=== PATIENT | female | born 1945 | race Caucasian/White ===

== ENCOUNTER 2021-10-21 09:44 | Day surgery (SDC) | payer MEDICARE, SELFPAY ==
[2021-10-16 09:25] VITALS: BMI 23.8
--- NOTE | 2021-10-20 10:49 | P.CONAN_ITS ---
Documented by User: Toshia Smith NP 10/20/21 10:50 HPI - Anesthesia Eval Consult details Narrative: 76yo F for Colonoscopy [facility] Past Medical History Medical History Elevated cholesterol HTN (hypertension) Surgical History Surgical History H/O colonoscopy Social History Social History Patient Tobacco Use Status: Never used Tobacco Use of substances other than those prescribed or required for medical reasons: No Are you DNR?: No Advance Directives: No Advance Directives Information Provided: Yes Patient : No Meds Allergies Allergy/AdvReac Type Severity Reaction Status Date / Time No Known Allergies Allergy Verified 10/16/21 09:26 Home Medications Medication Instructions Recorded Confirmed Last Taken Type atenolol 50 mg tablet 50 mg PO DAILY 10/16/21 10/16/21 Unknown History multivitamin 1 tab PO DAILY 10/16/21 10/16/21 Unknown History simvastatin 10 mg tablet 10 mg PO BEDTIME 10/16/21 10/21/21 10/21/21 06:45 History triamterene 37.5 1 tab PO DAILY 10/16/21 10/16/21 Unknown History mg-hydrochlorothiazide 25 mg tablet Exam Exam Date and Time: October 20, 2021 1049 Height,Weight and Vital Signs: Height 5 ft 2 in Weight 58.967 kg Assessment and Plan Assessment Anesthesia Assessment: Chart Reviewed Documented by User: Ana Luisa Patel MD 10/21/21 11:10 [facility] Past Medical History Medical History Elevated cholesterol HTN (hypertension) Patient : No Family History Family history of problems with anesthesia: No Surgical History Surgical History H/O colonoscopy History of Problems with Anesthesia: No Social History Social History Patient Tobacco Use Status: Never used Tobacco Use of substances other than those prescribed or required for medical reasons: No Are you DNR?: No Advance Directives: No Advance Directives Information Provided: Yes Patient : No Meds Allergies Allergy/AdvReac Type Severity Reaction Status Date / Time No Known Allergies Allergy Verified 10/16/21 09:26 Home Medications Medication Instructions Recorded Confirmed Last Taken Type atenolol 50 mg tablet 50 mg PO DAILY 10/16/21 10/16/21 Unknown History multivitamin 1 tab PO DAILY 10/16/21 10/16/21 Unknown History simvastatin 10 mg tablet 10 mg PO BEDTIME 10/16/21 10/21/21 10/21/21 06:45 History triamterene 37.5 1 tab PO DAILY 10/16/21 10/16/21 Unknown History mg-hydrochlorothiazide 25 mg tablet Exam Airway Mallampati Class: II TM Dist: >3cm Neck ROM: Full Heart: RRR Lungs: CTA Assessment and Plan Final Anesthetic Review Family History of Problems with Anesthesia: No History of Problems with Anesthesia: No ASA Class: II Final Preanesthetic Review: No Changes in Pt Med Stat, Meds/Allgs Chart Reviewed, Consent Obtained/Reviewed and Anes Risks/Benef Reviewed Patient Risk: Low Procedure Risk: Low Anesthetic Plan Anesthetic Plan: MAC: Disposition: Standard PACU
[2021-10-21 10:33] VITALS: BMI 23.8
[2021-10-21 10:38] VITALS: BP 143/85; PULSE 62; RESP 18; TEMP 36.9; O2SAT 98
[2021-10-21] MEDS: Lactated Ringers 1,000 ML 100 ML IVCONT (10:41)
--- NOTE | 2021-10-21 10:53 | MHC.SHP ---
Pre-Procedural Eval Section A Date of Service: 10/21/21 The patient is an INPATIENT: No Changes since office visit: No Cold of Flu in the past 2 weeks, No New Medical Problems, No Changes in Medication and No Patient answered all questions The History & Physical has been completed within 30 days and I have reviewed it.: No Section B Chief Complaint: screening Allergies: Allergies Allergy/AdvReac Type Severity Reaction Status Date / Time No Known Allergies Allergy Verified 10/16/21 09:26 Plan I have reviewed the history and physical and performed a pertinent physical examination on my patient. No changes have occurred unless specified.
--- NOTE | 2021-10-21 11:18 | PM.OP ---
Brief Operative Note Date of Service: 10/21/21 Pre-op diagnosis: screening Post-op diagnosis: same Procedure: colonoscopy Surgeon: Ton Beaulieu Anesthesia: MAC Was an Saw Edge Fuser Circular used for this Procedure?: No Estimated blood loss (mL): 0 Pathology: none sent Condition: stable Disposition: PACU
[2021-10-21 11:22] VITALS: BP 86/52; PULSE 69; RESP 16; TEMP 36.1; O2SAT 94
[2021-10-21 11:37] VITALS: BP 116/63; PULSE 61; RESP 16; O2SAT 96
--- NOTE | 2021-10-21 11:49 | HO.POSTANES ---
Post Anesthesia Evaluation Post Anesthesia Evaluation Vital Signs: Vital Signs Temp Pulse Resp BP Pulse Ox O2 Del Method 10/21/21 11:37 61 16 116/63 96 Room Air 10/21/21 11:22 97.0 F 69 16 86/52 L 94 Room Air 10/21/21 10:38 98.5 F 62 18 143/85 H 98 Room Air Anesthesia: Monitored Mental Status: Awake Pain Control: Satisfactory Nausea/Vomiting: None Hydration: Adequate Anesthesia-Related Issues: No Anes. Related Issues
[2021-10-21 11:52] VITALS: BP 118/63; PULSE 60; RESP 16; TEMP 36.1; O2SAT 96
--- NOTE | 2021-10-21 12:46 | OP_ITS ---
SURGEON: Ton Beaulieu MD INDICATIONS: Colon cancer screening and prior history of adenomatous colon polyps. PREOPERATIVE DIAGNOSIS: POSTOPERATIVE DIAGNOSIS: PROCEDURE PERFORMED: Colonoscopy to the terminal ileum. ESTIMATED BLOOD LOSS: COMPLICATIONS: ANESTHESIA: ASSISTANTS: SPECIMENS: MEDICATIONS: Monitored anesthesia care. DESCRIPTION OF PROCEDURE: History and physical were performed. The risks and benefits of the procedure were explained to the patient. Informed consent was obtained. The patient was placed in the left lateral decubitus position. A digital rectal exam was performed and was found to be normal. The Olympus pediatric video colonoscope was introduced into the rectum and advanced to the cecum without difficulty. The cecum was identified by transillumination, palpation, and identification of ileocecal valve. Examination was performed and the scope was removed. She tolerated the procedure well and was sent to recovery area in stable condition. FINDINGS: The terminal ileum was examined and appeared normal. The visualized colonic mucosa was normal. The quality of the prep was good. There was mild to moderate sigmoid diverticulosis without any evidence of diverticulitis. Retroflexed examination showed moderately large internal hemorrhoids. IMPRESSION: Normal screening colonoscopy. RECOMMENDATION: 1. Follow up as needed. 2. Repeat colonoscopy is not recommended based on age for screening purposes. MD HANNA Herrera/SHELLY / [id number]
== END 2021-10-21 12:23 | disposition home or self-care (01) ==
PROVIDERS: PCP Nurse Practitioner Adult Health; Visit Provider Internal Medicine Gastroenterology
PROC: 0DJD8ZZ Inspection of Lower Intestinal Tract, Via Natural or Artificial Opening Endoscopic (ICD-10-PCS; CPT 45378; principal; 2021-10-21 11:00)
DX: Z12.11 Encounter for screening for malignant neoplasm of colon (principal); Z86.010 Personal history of colon polyps; K57.30 Diverticulosis of large intestine without perforation or abscess without bleeding; K64.8 Other hemorrhoids; I10 Essential (primary) hypertension; E78.00 Pure hypercholesterolemia, unspecified; Z79.899 Other long term (current) drug therapy
CPT/HCPCS: G0105